=== PATIENT | female | born 1960 | race Hispanic/Latino ===

== ENCOUNTER 2024-03-16 16:15 | Emergency (ER) | payer BC ==
[2024-03-16] MEDS ORDERED: ONDANSETRON 4 MG/2 ML VIAL ONE (17:42)
[2024-03-16] MEDS ORDERED: FAMOTIDINE 20 MG/2 ML VIAL IV ONE (17:42)
[2024-03-16 17:51] LABS: Absolute Basophils 0.1 K/uL (0-0.5); Absolute Eosinophils 0.1 K/uL (0-0.5); Absolute Lymphocytes (CBC) 0.9 K/uL (0.7-4.9); Absolute Monocytes 0.5 K/uL (0.1-1.3); Absolute Neutrophil 13.2 K/uL (1.8-8.0); Basophils % 0.7 % (0-1.3); Eosinophils % 0.6 % (0-4.4); Hematocrit 47.3 % (36.0-45.0); Hemoglobin 15.6 g/dL (12.0-15.0); Lymphocytes % 5.9 % (15.3-44.8); MCH 28.7 pg (27.0-35.0); MCHC 32.9 g/dL (32.0-36.0); MCV 87.1 fL (80-100); MPV 9.1 fL (7.6-11.3); Monocytes % 3.7 % (3.3-12.3); Neutrophils % 89.1 % (41.7-73.7); Platelets 251 thou/uL (152-406); RBC Red Blood Cell Count 5.43 M/uL (3.86-4.86)
[2024-03-16 18:06] LABS: Albumin 4.4 g/dL (3.4-5.0); Albumin/Globulin Ratio 1.1 (1.1-1.8); Anion Gap 8.7 mEq/L (5.0-15.0); Bilirubin Total 0.7 mg/dL (0.2-1.0); Globulin 4.1 g/dL (2.3-3.5); Potassium 3.7 mEq/L (3.5-5.1); Protein, Total 8.5 g/dL (6.4-8.2)
[2024-03-16 18:10] LABS: Specific Gravity > 1.030 (1.005-1.030); Sqamous Epithelial <5 /HPF (None Seen); Urine Bacteria None Seen /HPF (<20); Urine Bilirubin NEGATIVE (Negative); Urine Blood Negative (Negative); Urine Clarity Clear (Clear); Urine Color Yellow (Yellow); Urine Crystals Unidentified Few /HPF (None Seen); Urine Culture Reflex Order NOT NEEDED; Urine Glucose NEGATIVE (Negative); Urine Ketones TRACE (Negative); Urine Microscopic Reflex YN ORDER UMIC; Urine Mucus 1+ /HPF (None Seen); Urine Nitrite NEGATIVE (Negative); Urine Protein TRACE (Negative); Urine RBC <5 /HPF (None Seen); Urine Urobilinogen Normal (Normal); Urine WBC <5 /HPF (<5)
[2024-03-16 19:04] LABS: Blood Morphology Comment NOT SEEN (NOT SEEN); Platelet Estimate ADEQ; White Blood Cell Scan OK (OK)
--- NOTE | 2024-03-16 19:08 | RAD REPORT ---
EXAMINATION: CT ABDOMEN AND PELVIS WITH CONTRAST CLINICAL INDICATION: Female, 63 years old.nausea, diarrhea TECHNIQUE: CT abdomen and pelvis was performed, after the administration of IV contrast, as per [facility] protocol. Axial, sagittal and coronal reconstructions were obtained. One or more of the following dose reduction techniques were used: Automated exposure control, adjustment of the mA and/o r kV according to patient size, and/or iterative reconstruction. Unless otherwise specified, incidental findings do not require dedicated imaging follow-up. [id number]. COMPARISON: 07/29/2022 FINDINGS: LOWER CHEST: The visualized lung bases are clear. LIVER: Normal in size and contour. No focal lesion. GALLBLADDER/BILE DUCT: Cholecystectomy? PANCREAS: No significant abnormality. SPLEEN: Normal size. No focal lesion. ADRENALS: Normal; no mass. KIDNEYS AND URETERS: Normal size and contour. No hydronephrosis. GASTROINTESTINAL TRACT: Stomach is non-dilated. Small bowel has normal course and caliber. No colonic wall thickening or pericolonic inflammatory changes. Diverticulosis without diverticulitis. No appendicitis. PERITONEUM: No ascites. LYMPH NODES: No lymphadenopathy. ABDOMINAL AORTA AND OTHER VESSELS: Normal caliber aorta and IVC. 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 This is present in retrospect and is of doubtful significance. URINARY BLADDER: Normal contour. REPRODUCTIVE ORGANS: No pathologic process MUSCULOSKELETAL: No acute or suspicious osseous abnormality. ADDITIONAL FINDINGS: None. IMPRESSION: No acute or significant abnormalities seen in the abdomen or pelvis. 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 In retrospect, this was probably present on the prior CT from 07/29/2022 and is probably a full clinical significance.
--- NOTE | 2024-03-16 19:36 | EDPHYS ---
Physician Documentation [facility] Name: Aury Rolle Age: 63 yrs Sex: Female : 1960 Arrival Date: 03/16/2024 Time: 16:15 Bed 26 Private MD: ED Physician Ez Hogan HPI: 03/16 17:52 This 63 yrs old Female presents to ER via Ambulatory with complaints of rn Diarrhea, Nausea. 17:52 The patient presents to the emergency department with nausea, diarrhea, abdominal pain. rn 17:56 Onset: The symptoms/episode began/occurred this morning. Possible causes: unknown. The rn symptoms are aggravated by nothing. The symptoms are alleviated by nothing. Associated signs and symptoms: Pertinent positives: abdominal pain, diarrhea, nausea, Pertinent negatives: fever, GI bleeding. Severity of symptoms: At their worst the symptoms were moderate in the emergency department the symptoms are unchanged. The patient has not experienced similar symptoms in the past. The patient has not recently seen a physician. Patient reports upper abdominal pain associated with nausea and diarrhea. No blood in stool. Had tacos last night but did not get sick. Has only had coffee and a banana today. No fever or chills. Has already had gallbladder and appendix removed. No known history of gastric ulcers or acid reflux.. Historical: - Allergies: 16:31 PENICILLINS; hb 16:31 Advil; hb - PMHx: 16:31 Hypertension; Psoriatic Arthritis; hb - PSHx: 16:31 Tubal Ligation; Appendectomy; Tonsillectomy; Back; hb - Immunization history:: Adult Immunizations up to date. - Infectious Disease History:: Denies. - Family history:: not pertinent. - Social history:: Smoking status: Patient denies any tobacco usage or history of. - Hospitalizations: : No recent hospitalization is reported. ROS: 17:56 Constitutional: Negative for fever, chills, and weight loss, Cardiovascular: Negative rn for chest pain, palpitations, and edema, Respiratory: Negative for shortness of breath, cough, wheezing, and pleuritic chest pain, Abdomen/GI: Positive for abdominal pain with nausea and diarrhea MS/Extremity: Negative for injury and deformity, Neuro: Negative for headache, weakness, numbness, tingling, and seizure, Exam: 17:56 Constitutional: This is a well developed, well nourished patient who is awake, alert, rn and in no acute distress. Cardiovascular: Regular rate and rhythm. No pulse deficits. Respiratory: No increased work of breathing, no retractions or nasal flaring. Abdomen/GI: Soft, mild epigastric and left upper quadrant tenderness. No rebound or guarding. Vital Signs: 16:30 BP 178 / 99; Pulse 77; Resp 16; Temp 97.7(TE); Pulse Ox 98% on R/A; Weight 72.57 kg; hb Height 4 ft. 11 in. ; Pain 8/10; 17:30 BP 159 / 91; Pulse 80; Resp 16; Pulse Ox 96% ; me1 18:00 BP 157 / 87; Pulse 82; Resp 16; Pulse Ox 96% ; me1 18:00 BP 154 / 87; Pulse 75; Resp 16; Temp 98.4; Pulse Ox 100% ; me1 19:00 BP 153 / 83; Pulse 71; Resp 16; Pulse Ox 100% ; me1 16:30 Body Mass Index 32.32 (72.57 kg, 149.86 cm) hb 16:30 Pain Scale: Adult hb MDM: 16:26 Medical Screening Exam initiated rn 19:31 Differential diagnosis: Nonspecific abd pain, pancreatitis, appendicitis, rn diverticulitis, viral gastroenteritis, gastroenteritis. Data reviewed: vital signs, nurses notes, lab test result(s), radiologic studies, CT scan, and as a result, I will discharge patient. Management of patient was discussed with the following: Primary Care Provider: Discussed case and results with Dr. Jay her PCP, okay with MI home with antibiotics, would like 162 mg aspirin daily and as needed Zofran. Request that she makes a follow-up appointment with them this week.. Counseling: I had a detailed discussion with the patient and/or guardian regarding the historical points, exam findings, and any diagnostic results supporting the discharge/admit diagnosis, lab results, radiology results, the need for outpatient follow up, to return to the emergency department if symptoms worsen or persist or if there are any questions or concerns that arise at home. 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 Was seen back in rn embedded of July 2022. Unknown clinical significance but her PCP would like to take 2 baby aspirin daily and follow-up with him later this week.. 03/16 16:28 Order name: CBC with Diff; Complete Time: 19:05 rn 03/16 16:28 Order name: CMP; Complete Time: 18:14 rn 03/16 16:28 Order name: Lipase; Complete Time: 18:14 rn 03/16 17:20 Order name: Urinalysis w/ reflexes; Complete Time: 18:14 rn 03/16 19:04 Order name: CBC Smear Scan; Complete Time: 19:05 EDMS 03/16 16:28 Order name: CT Abd/Pelvis - IV Contrast Only; Complete Time: 19:19 rn 03/16 16:28 Order name: IV Saline Lock; Complete Time: 17:39 rn 03/16 16:28 Order name: Labs collected and sent; Complete Time: 17:39 rn Administered Medications: 17:53 Drug: Ondansetron IVP 4 mg IVP once; over 2 minutes Route: IVP; Site: left antecubital; me1 18:22 Follow up: Response: No adverse reaction; Nausea is decreased me1 17:53 Drug: Famotidine IVP 20 mg IVP once; dilute with 10 mL 0.9% NaCl; give over 2 minutes me1 Route: IVP; Site: left antecubital; 18:21 Follow up: Response: No adverse reaction me1 19:57 Drug: Ciprofloxacin PO 500 mg PO once Route: PO; me1 20:14 Follow up: Response: No adverse reaction me1 19:57 Drug: metroNIDAZOLE PO 500 mg PO once Route: PO; me1 20:15 Follow up: Response: No adverse reaction me1 19:57 Drug: Ondansetron Oral Disintegrating Tablet Oral Disintegrating Tablet 4 mg PO once me1 Route: PO; 20:15 Follow up: Response: No adverse reaction; Nausea is decreased me1 Disposition Summary: 03/16/24 19:35 Discharge Ordered Notes: Location: Home rn Problem: new rn Symptoms: have improved rn Condition: Stable rn Diagnosis - Gonadal vein thrombosis rn - Infectious gastroenteritis and colitis, unspecified rn Followup: rn - With: Private Physician - When: As needed - Reason: Recheck today's complaints, Re-evaluation by your physician Discharge Instructions: - Discharge Summary Sheet rn - Diarrhea, Adult rn - Nausea and Vomiting, Adult rn Forms: - Medication Reconciliation Form rn - Antibiotic international affairs vice president - Prescription Opioid Use rn - Patient Portal Instructions rn - Leadership Thank You Letter rn Prescriptions: - ondansetron 4 mg Oral Tablet,disintegrating - take 1 tablet ORAL route every 8 hours As needed; 12 tablet; Refills: 0, rn Product Selection Permitted - Flagyl 500 mg Oral Tablet - take 1 tablet ORAL route every 8 hours for 10 days; 30 tablet; Refills: 0, rn Product Selection Permitted - Cipro 500 mg Oral tablet - take 1 tablet ORAL route every 12 hours for 10 days; 20 tablet; Refills: 0, rn Product Selection Permitted Signatures: Dispatcher [employer] EDMS Ez Hogan MD MD rn Baxter, Heather, RN RN Marivel Kyle RN RN me1 Corrections: (The following items were deleted from the chart) 16:28 16:28 CBC+H.LAB.BRZ ordered. EDMS EDMS 16:28 16:28 COMPREHENSIVE METABOLIC PANEL+C.LAB.BRZ ordered. EDMS EDMS 16:28 16:28 LIPASE+C.LAB.BRZ ordered. EDMS EDMS 16:29 16:29 Abdomen Pelvis W Con+CT.RAD.BRZ ordered. EDMS EDMS 17:18 17:05 Abdomen Limited+US.RAD.BRZ ordered. EDMS EDMS
--- NOTE | 2024-03-16 19:36 | ER ---
Nurse's Notes [facility] Name: Aury Rolle Age: 63 yrs Sex: Female : 1960 Arrival Date: 03/16/2024 Time: 16:15 Bed 26 Private MD: Diagnosis: Gonadal vein thrombosis;Infectious gastroenteritis and colitis, unspecified Presentation: 03/16 16:30 Chief complaint: Upper abdominal pain and N/D sine this morning. Coronavirus screen: At this time, the client does not indicate any symptoms associated with coronavirus-19. Ebola Screen: No symptoms or risks identified at this time. Initial Sepsis Screen: Does the patient meet any 2 criteria? No. Patient's initial sepsis screen is negative. Does the patient have a suspected source of infection? No. Patient's initial sepsis screen is negative. Risk Assessment: Do you want to hurt yourself or someone else? Patient reports no desire to harm self or others. Onset of symptoms was March 16, 2024. 16:30 Method Of Arrival: Ambulatory hb 16:30 Acuity: [place] 3 hb Historical: - Allergies: 16:31 PENICILLINS; hb 16:31 Advil; hb - PMHx: 16:31 Hypertension; Psoriatic Arthritis; hb - PSHx: 16:31 Tubal Ligation; Appendectomy; Tonsillectomy; Back; hb - Immunization history:: Adult Immunizations up to date. - Infectious Disease History:: Denies. - Family history:: not pertinent. - Social history:: Smoking status: Patient denies any tobacco usage or history of. - Hospitalizations: : No recent hospitalization is reported. Screenin:50 [facility] ED Fall Risk Assessment (Adult) History of falling in the last 3 months, me1 including since admission No falls in past 3 months (0 pts) Confusion or Disorientation No (0 pts) Intoxicated or Sedated No (0 pts) Impaired Gait No (0 pts) Mobility Assist Device Used No (0 pt) Altered Elimination No (0 pt) Score/Fall Risk Level 0 - 2 = Low Risk Maintained a safe environment, Provided non-skid footwear, Hourly rounding (assess needs \T\ fall precautionary measures) done. Abuse screen: Denies threats or abuse. Nutritional screening: No deficits noted. Tuberculosis screening: No symptoms or risk factors identified. Assessment: 17:50 General: Appears uncomfortable, ill, well groomed, well developed, well nourished, me1 Behavior is calm, cooperative, appropriate for age, Reports Upper abdominal pain and N/D sine this morning. Pain: Complains of pain in right upper quadrant and left upper quadrant Pain does not radiate. Pain currently is 4 out of 10 on a pain scale. Quality of pain is described as aching, Pain began gradually, Is continuous. Neuro: Level of Consciousness is awake, alert, obeys commands, Oriented to person, place, time, situation, Appropriate for age. Cardiovascular: Patient's skin is warm and dry. Respiratory: Airway is patent Respiratory effort is even, unlabored, Respiratory pattern is regular, symmetrical. GI: Abdomen is round Bowel sounds present X 4 quads. Abd is soft X 4 quads. : No signs and/or symptoms were reported regarding the genitourinary system. EENT: No signs and/or symptoms were reported regarding the EENT system. Derm: Skin is intact, is healthy with good turgor, Skin is pink, warm \T\ dry. Musculoskeletal: No signs and/or symptoms reported regarding the musculoskeletal system. 19:57 General: Discharge delayed for medication follow up time. . me1 Vital Signs: 16:30 BP 178 / 99; Pulse 77; Resp 16; Temp 97.7(TE); Pulse Ox 98% on R/A; Weight 72.57 kg; hb Height 4 ft. 11 in. ; Pain 8/10; 17:30 BP 159 / 91; Pulse 80; Resp 16; Pulse Ox 96% ; me1 18:00 BP 157 / 87; Pulse 82; Resp 16; Pulse Ox 96% ; me1 18:00 BP 154 / 87; Pulse 75; Resp 16; Temp 98.4; Pulse Ox 100% ; me1 19:00 BP 153 / 83; Pulse 71; Resp 16; Pulse Ox 100% ; me1 16:30 Body Mass Index 32.32 (72.57 kg, 149.86 cm) hb 16:30 Pain Scale: Adult hb ED Course: 16:17 Patient arrived in ED. im 16:26 Ez Hogan MD is Attending Physician. rn 16:31 Triage completed. hb 16:33 Arm band placed on. hb 17:05 Patient placed in an exam room, on a stretcher. ll1 17:22 Marivel Kyle, JESUS ALBERTO is Primary Nurse. me1 17:39 CBC with Diff Sent. me1 17:39 CMP Sent. me1 17:39 Lipase Sent. me1 17:39 Urinalysis w/ reflexes Sent. me1 17:39 Initial lab(s) drawn, by me, sent to lab. Urine collected: clean catch specimen, clear, me1 charleen colored. Inserted saline lock: 22 gauge in left antecubital area, using aseptic technique. 17:50 Patient has correct armband on for positive identification. Bed in low position. Call me1 light in reach. Side rails up X2. Provided Education on: POC. Verbalized understanding.. Client placed on continuous cardiac and pulse oximetry monitoring. NIBP monitoring applied. Pulse ox on. NIBP on. 17:50 No provider procedures requiring assistance completed. me1 18:58 CT Abd/Pelvis - IV Contrast Only In Process Unspecified. EDMS 20:13 IV discontinued, intact, bleeding controlled, No redness/swelling at site. Pressure me1 dressing applied. Administered Medications: 17:53 Drug: Ondansetron IVP 4 mg IVP once; over 2 minutes Route: IVP; Site: left antecubital; me1 18:22 Follow up: Response: No adverse reaction; Nausea is decreased me1 17:53 Drug: Famotidine IVP 20 mg IVP once; dilute with 10 mL 0.9% NaCl; give over 2 minutes me1 Route: IVP; Site: left antecubital; 18:21 Follow up: Response: No adverse reaction me1 19:57 Drug: Ciprofloxacin PO 500 mg PO once Route: PO; me1 20:14 Follow up: Response: No adverse reaction me1 19:57 Drug: metroNIDAZOLE PO 500 mg PO once Route: PO; me1 20:15 Follow up: Response: No adverse reaction me1 19:57 Drug: Ondansetron Oral Disintegrating Tablet Oral Disintegrating Tablet 4 mg PO once me1 Route: PO; 20:15 Follow up: Response: No adverse reaction; Nausea is decreased me1 Medication: 17:50 VIS not applicable for this client. me1 Outcome: 19:35 Discharge ordered by MD. garcia 20:13 Discharged to home ambulatory, with significant other, me1 20:13 Condition: stable 20:13 Discharge instructions given to patient, significant other, Instructed on discharge instructions, follow up and referral plans. medication usage, Demonstrated understanding of instructions, follow-up care, medications, Prescriptions given X 3, 20:14 Patient left the ED. me1 Signatures: Dispatcher [employer] EDEz Caraballo MD MD rn Baxter, Heather, RN RN Akiko Cantu RN RN 1 Maria A Melgar Michelle, RN RN me1 Corrections: (The following items were deleted from the chart) 17:50 16:30 Chief complaint: Upper abdominal pain and N/D sine this morning. me1
[2024-03-16] MEDS ORDERED: CIPROFLOXACIN HCL 500 MG TAB ONE (19:55)
[2024-03-16] MEDS ORDERED: metroNIDAZOLE 500 MG TABLET ONE (19:55)
[2024-03-16] MEDS ORDERED: ONDANSETRON 4 MG (ODT) TAB ONE (19:55)
[2024-03-17 01:26] VITALS: TEMP 98.4; O2SAT 100
[2024-03-17 01:27] VITALS: BP 153/83
== END 2024-03-16 20:14 | disposition home or self-care (01) ==
LOC: ER 16:15
DX: A09 Infectious gastroenteritis and colitis, unspecified (principal); I82.890 Acute embolism and thrombosis of other specified veins; I10 Essential (primary) hypertension
CPT/HCPCS: 85025; 81001; 36415; 83690; 80053; 74177; 96375; 96374; 99284; Q9967; Q0162; J2405